=== PATIENT | male | born 1985 ===

== ENCOUNTER → 2017-08-08 | Outpatient (CLI) | payer OTHER ==
[~2017-08-08] MED LIST: GADAVIST IV PRN
--- NOTE | 2017-08-08 15:45 | DIAGNOSTIC IMAGING REPORT ---
BRAIN COMBO CLINICAL HISTORY: R20.2 [id number] Headache headache. Mental status change. COMPARISON STUDY: No previous studies for comparison. TECHNIQUE: Utilizing a 1.5 Reina magnet and dedicated coil, multiplanar, multiecho imaging of the brain was performed pre and postcontrast administration. IV administration of 7 mL of Gadavist contrast was uneventful. FINDINGS: Diffusion-weighted images are considered negative for an acute ischemic event. Signal characteristics are unremarkable. Ventricular system is midline. Sella and parasellar regions are unremarkable. Internal artery canal is unremarkable. No abnormal postcontrast enhancement. IMPRESSION: Normal study. The above report was generated using voice recognition software. It may contain grammatical, syntax or spelling errors. Electronically signed by: Milton Virk M.D. 08/08/2017 3:44 PM Dictated Date/Time: 08/08/2017 3:41 PM
== END | disposition home or self-care (01) ==
LOC: C.MRI 14:44
PROVIDERS: ATTEND Physician Assistant
DX: R20.2 Paresthesia of skin (principal); R51 Headache